=== PATIENT | male | born 1960 | race Caucasian/White ===

== ENCOUNTER 2016-10-12 02:32 | Observation (INO) ==
[2016-10-12 03:13] LABS: MANUAL DIFF NEEDED? NO
[2016-10-12 03:16] LABS: BASO% 0.3 % (0.0-0.8); EOS# 0.16 X1000 (0.0-0.7); EOS% 1.4 % (0.0-10.0); HEMOGLOBIN 10.3 g/dL (14.0-18.0); IMM GRAN# 0.06 X1000 (0.0-0.04); IMM GRAN% 0.5 % (0.0-0.5); LYMPH# 1.08 X1000 (1.2-3.4); LYMPH% 9.4 % (20.5-51.1); MCH 31.8 PG (27-31); MCHC 32.2 g/dL (33-37); MCV 98.8 FL (81-99); MONO# 1.33 X1000 (0.11-0.59); MONO% 11.6 % (1.7-9.3); MPV 11.1 FL (7.4-10.4); NEUT% 76.8 % (42.2-75.2); PLT 170 X1000 (130-400); RBC 3.24 XMIL (4.7-6.1)
[2016-10-12 03:27] LABS: INR 0.97; PROTIME 10.2 Seconds (9.2-11.7); PTT 26.6 Seconds (22.0-36.0)
[2016-10-12] MEDS ORDERED: SOLU-CORTEF IV ONE (03:28)
[2016-10-12] MEDS ORDERED: NS 1,000 ML IV SCH (03:28)
[2016-10-12 03:38] LABS: ALBUMIN 3.9 g/dL (3.5-5.0); CALCIUM 8.4 mg/dL (8.8-10.2); POTASSIUM 4.7 mmol/L (3.5-5.1); TOTAL BILIRUBIN 0.34 mg/dL (0.20-1.00); TOTAL PROTEIN 6.1 g/dL (6.3-8.3)
[2016-10-12] MEDS: PROTONIX 80 MG in NS 80 ML IV SCH ×3 (03:38→23:00)
--- NOTE | 2016-10-12 04:27 | PROVIDER DOCUMENTATION ---
This chart was entered by Sary Hills Scribe, acting as scribe for Peng Goins MD. HPI-Abdominal Pain/GI Problem - General Chief Complaint: GI Bleed Stated Complaint: VOMITING BLOOD Time Seen by Provider: 10/12/16 02:39 Source: patient Allergies/Adverse Reactions: Patient Allergies Allergy/AdvReac Type Severity Reaction Status Date / Time Penicillins Allergy Intermediate Unknown Verified 04/27/14 10:07 Home Medications: Home Medication List Medication Instructions Recorded Confirmed Last Taken Type Allopurinol [Zyloprim] 600 mg PO DAILY 04/27/14 10/12/16 08/04/14 07:30 History Atenolol 12.5 mg PO BID 04/27/14 10/12/16 08/04/14 07:30 History Atorvastatin Calcium [Lipitor] 20 mg PO DAILY 04/27/14 10/12/16 08/03/14 21:00 History Cyclosporine, Modified [Neoral] 75 mg PO BID 04/27/14 10/12/16 08/04/14 07:30 History Iron Fum,Ps/FA/Vit B with C #9 1 each PO DAILY 04/27/14 10/12/16 08/04/14 07:30 History [Integra Plus Capsule] Losartan [Cozaar] 25 mg PO DAILY 04/27/14 10/12/16 08/03/14 07:30 History Multivitamin with Minerals 1 each PO DAILY 04/27/14 10/12/16 08/04/14 07:30 History [Multiple Vitamin] Mycophenolate Mofetil [Cellcept] 1,000 mg PO BID 04/27/14 10/12/16 08/04/14 07: 30 History [place]-3 Fatty Acids/Fish Oil [Fish 1 each PO DAILY 04/27/14 10/12/16 08/04/14 07 :30 History Oil 1,000 mg Softgel] Prednisone 10 mg PO DAILY 04/27/14 10/12/16 08/04/14 07:30 History Sulfamethoxazole/Trimethoprim 1 each PO DAILY 04/27/14 10/12/16 08/04/14 07:30 History [Bactrim 400-80 mg Tablet] Ubidecarenone/Vit E Acetate [Co 1 each PO DAILY 04/27/14 10/12/16 08/04/14 07: 30 History Q-10 100 mg Softgel] - History of Present Illness-ABD Nature of Presenting Problems: 56 year old M presents to the ED with a cc of ABD pain, nausea, and vomiting. Pt states that he had ABD discomfort yesterday. This morning around 0100 pt began vomiting. Pt states that the first vomit was normal but the rest have been pure blood. Pt states that it has been bright red blood. Abdominal Pain Onset Location: reports: epigastric Pain Radiation: reports: no radiation Quality of Pain: reports: aching Severity in ED: reports: mild Onset/Duration: reports: 24 hours ago Timing: reports: still present Activities at Onset: reports: none Associated Symptoms: reports: nausea, vomiting Emesis Description: reports: red blood Bruising or Bleeding Gums?: No Similar Symptoms Previously?: No Recently seen or treated by another doctor?: No Review of Systems - Adult - REVIEW OF SYSTEMS - ADULT Constitutional: denies: chills, fever Eyes: reports: no symptoms reported Ears, Nose, Mouth & Throat: reports: no symptoms reported Cardiovascular: denies: chest pain, palpitations Respiratory: denies: cough, shortness of breath Gastrointestinal: reports: abdominal pain, hematemesis, nausea, vomiting. denies: diarrhea Genitourinary: reports: no symptoms reported Musculoskeletal: reports: no symptoms reported Integumentary: reports: no symptoms reported Neurological: reports: no symptoms reported Psychiatric: reports: no symptoms reported Endocrine: reports: no symptoms reported Hematologic/Lymphatic: reports: no symptoms reported Allergic/Immunologic: reports: no symptoms reported All Other Systems: Reviewed and Negative Past History - Adult - PAST MEDICAL HISTORY-ADULT Review of Records: reports: Nursing Assessment Review, Medications Reviewed Major Childhood Illnesses: reports: denies history Cardiovascular: reports: HTN, hyperlipidemia Genitourinary: reports: kidney disease, other (kidney transplant) Other Conditions: reports: blindness (right eye) - PRIOR SURGERIES/PROCEDURES Surgical/Procedure History: reports: appendectomy, joint replacement, other ( renal transplant) - IMMUNIZATION STATUS Childhood Immunizations: See Nurse Assessment Flu Vaccine: See Nurse Assessment - SOCIAL HISTORY Smoking: non-smoker Substance Use: none/never Alcohol Use Frequency: never Physical Exam-General - PHYSICAL EXAM-ADULT Initial Vital Signs Reviewed: Yes - CONSTITUTIONAL General Appearance: appears well, alert, no apparent distress - EYES Eyes: other (right pupil 7mm and nonreactive secondary to blindness, left pupil 3mm and reactive) - RESPIRATORY Respiratory: chest non-tender, lungs clear, normal breath sounds - CARDIOVASCULAR Cardiovascular: normal peripheral pulses, regular rate, rhythm, no edema - GASTROINTESTINAL (ABDOMEN) Abdominal Exam: soft, tenderness (epigastric), other (kidney transplant RLQ) - SKIN Integumentary: normal color, normal turgor, warm/dry - PSYCHIATRIC Psych/Mental Status: normal mood/affect, normal thought content, normal thought process, oriented x 3 Progress - PLAN OF CARE/RESULTS Progress/Plan/Lab Results: Vital Signs - 8 hr 10/12/16 02:36 Temperature 97.8 F Pulse Rate 81 Respiratory Rate 18 Blood Pressure 191/108 O2 Sat by Pulse Oximetry 99 Orders Category Date Time Status Saline Loc DIRECTED Care 10/12/16 02:38 Active CBC WITH ELECTRONIC DIFF [HEME] Stat Lab 10/12/16 02:38 Ordered COMPREHENSIVE METABOLIC PANEL [CHEM] Stat Lab 10/12/16 02:38 Ordered OCCULT BLOOD NON-FECES Stat Lab 10/12/16 02:38 Uncollected PROTIME WITH INR [COAG] Stat Lab 10/12/16 02:38 Ordered PTT [COAG] Stat Lab 10/12/16 02:38 Ordered TYPE & SCREEN [BBK] Stat Lab 10/12/16 02:38 Ordered Result Diagrams: 10/12/16 02:50 10/12/16 02:50 - REASSESSMENT Reassessment #1 Time Reassessed: 04:00 (He remains stable with HCT) Departure - Departure Time of Disposition Decision: 04:25 DIAGNOSIS: GI bleed Qualifiers: GI bleed type/associated pathology: gastrointestinal hemorrhage with hematemesis Qualified Code(s): K92.0 - Hematemesis Disposition: ADMITTED INPATIENT 09 Certified Medical Emergency: Emergent Condition: Fair Referrals and Follow-Ups: Noman Marinelli MD [Primary Care Provider] - This chart was documented by the indicated scribe, (Sary Hills Scribe) and accurately reflects the services I performed and decisions made by me, Peng Goins MD, as attested by the provider's signature.
[2016-10-12] MEDS ORDERED: ZOFRAN IV ONE (05:06)
--- NOTE | 2016-10-12 06:06 | HISTORY AND PHYSICAL ---
PRIMARY CARE PROVIDER: Dr. Marinelli. SEALER DRY CELL: Dr. Mathew. CHIEF COMPLAINT: Abdominal pain with blood in vomit. HISTORY OF PRESENT ILLNESS: Mr. Edwards is a 56-year-old male with a history of hypertension, hyperlipidemia, chronic kidney disease status post renal transplant who comes in today after having abdominal pain. He vomited one time which was around 1 this morning. The first time the patient had emesis it was normal. After that, it was bright red blood. Laboratory data was checked in the emergency room. Hemoglobin and hematocrit were 10.3 and 32 respectively. The patient will be admitted for further evaluation and treatment. PAST MEDICAL HISTORY: 1. Hypertension. 2. Hyperlipidemia. 3. Chronic kidney disease status post renal transplant. 4. Right eye blindness. PREVIOUS SURGICAL HISTORY: 1. Appendectomy. 2. Right renal transplant. 3. Bilateral hip replacement. 4. Bilateral triceps repair. SOCIAL HISTORY: Lives at home with his . 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 Denies alcohol, tobacco, or illicit drug use or abuse. FAMILY HISTORY: All of his mother's siblings had unspecified cancers; otherwise, patient denied a chronic illness in his family. ALLERGIES: Penicillin. HOME MEDICATIONS: 1. Fish oil 1000 mg daily. 2. Multivitamin 1 p.o. daily. 3. Bactrim DS 400/80 1 p.o. daily. 4. Prednisone 10 mg p.o. daily. 5. Integra Plus capsule 1 p.o. daily. 6. Lipitor 20 mg p.o. daily. 7. CellCept 1000 mg p.o. b.i.d. 8. Cozaar 25 mg p.o. daily. 9. Neoral 75 mg p.o. b.i.d. 10. Atenolol 12.5 mg p.o. b.i.d. 11. Zyloprim 600 mg p.o. daily. 12. CoQ10 100 mg soft gel 1 p.o. daily. REVIEW OF SYSTEMS: A 14 point review of systems conducted with the patient. Pertinent positives listed above in the HPI. All other systems negative. PHYSICAL EXAMINATION: VITAL SIGNS: Temperature 97.8 degrees, pulse 70, respirations 17, blood pressure 128/73, oxygen saturation 99% on room air. GENERAL: A pleasant 56-year-old male lying in the ER stretcher. No acute distress. Answers all questions appropriately. HEENT: Head is atraumatic, normocephalic. Right pupil was roughly 6 mm and nonreactive related to right eye blindness. Left pupil is 3 mm. It is briskly responsive and round. Extraocular eye movement intact. Sclerae is anicteric. Conjunctivae is pink. Oral mucosa is dry. NECK: Supple. No JVD. No thyromegaly. Trachea is midline. No cervical lymphadenopathy. CARDIAC: Regular rhythm. S1-S2 appreciated. No murmurs, gallops, rubs. LUNGS: Clear to auscultation bilaterally. No rhonchi, wheezes or rales. Symmetrical rise and fall of respirations. ABDOMEN: Protuberant and soft, nondistended. Tender in the epigastric area. No rebound tenderness. Bowel sounds present in all 4 quadrants. Hyperactive. No pulsatile mass. No organomegaly. EXTREMITIES: 2+ pitting edema bilateral lower extremities. 2+ pedal pulses. No clubbing, no cyanosis. SKIN: Warm, dry, intact. No acute lesions or rash. GENITOURINARY: The patient voids, otherwise deferred. NEUROLOGICAL: Alert and oriented x3. Otherwise nonfocal examination. LABORATORY DATA: WBC 11.48, hemoglobin 10.3, hematocrit 32, platelet count 170,000. Coags within normal limits. Sodium 144, potassium 4.7, chloride 109, carbon dioxide 23, BUN 52, creatinine 2.4, glucose 130. ASSESSMENT AND PLAN: 1. Upper gastrointestinal bleed. Consult Gastroenterology. Protonix drip which is already been started. Normal saline at 100 mL an hour. NPO, hold p.o. medications. 2. Chronic kidney disease stage 3, status post renal transplant. As noted above, p.o. medications will be held related to gastrointestinal bleed. Consult Dr. Mathew for help with these medications. 3. Anemia. Likely somewhat related to her chronic kidney disease. Also possibly related to acute GI bleed. We will trend hemoglobin and hematocrit. 4. Hypertension. Patient is normotensive at this time. We will hold all p.o. medications. Restart when appropriate. Further recommendations per patient clinical course. Dictated by KAYKAY Dean for Gilbert Foley MD cc: MD Noman Glass MD Harley C. Bailey, SENIOR ACCOUNT DIRECTOR Gilbert Og, MD
[2016-10-12] MEDS ORDERED: PROTONIX IV ONE (06:31)
[2016-10-12] MEDS ORDERED: SODIUM CHLORIDE 0.9% INJ ONE (06:31)
[2016-10-12] MEDS ORDERED: NS 1,000 ML IV ONE (06:49)
[2016-10-12 08:10] LABS: MANUAL DIFF NEEDED? NO
[2016-10-12] MEDS: ZOFRAN IV PRN ×2 (09:36→15:57)
[2016-10-12 10:15] LABS: BASO% 0.2 % (0.0-0.8); EOS# 0.06 X1000 (0.0-0.7); EOS% 0.5 % (0.0-10.0); HEMATOCRIT 27.9 % (42.0-52.0); HEMOGLOBIN 8.8 g/dL (14.0-18.0); IMM GRAN# 0.07 X1000 (0.0-0.04); IMM GRAN% 0.5 % (0.0-0.5); LYMPH# 0.68 X1000 (1.2-3.4); LYMPH% 5.1 % (20.5-51.1); MCH 31.3 PG (27-31); MCHC 31.5 g/dL (33-37); MCV 99.3 FL (81-99); MONO# 1.67 X1000 (0.11-0.59); MONO% 12.6 % (1.7-9.3); NEUT% 81.1 % (42.2-75.2); PLT 144 X1000 (130-400); RBC 2.81 XMIL (4.7-6.1)
[2016-10-12 12:59] LABS: MANUAL DIFF NEEDED? NO
[2016-10-12 13:07] LABS: BASO% 0.1 % (0.0-0.8); EOS# 0.05 X1000 (0.0-0.7); EOS% 0.4 % (0.0-10.0); HEMATOCRIT 28.8 % (42.0-52.0); IMM GRAN# 0.05 X1000 (0.0-0.04); IMM GRAN% 0.4 % (0.0-0.5); LYMPH# 0.76 X1000 (1.2-3.4); LYMPH% 5.9 % (20.5-51.1); MCH 30.9 PG (27-31); MCHC 31.3 g/dL (33-37); MONO# 1.11 X1000 (0.11-0.59); MONO% 8.6 % (1.7-9.3); MPV 10.6 FL (7.4-10.4); NEUT% 84.6 % (42.2-75.2); PLT 151 X1000 (130-400); RBC 2.91 XMIL (4.7-6.1)
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
[2016-10-12] MEDS ORDERED: EPINEPHRINE SYRINGE ONE (15:17)
[2016-10-12] MEDS ORDERED: DIPRIVAN 1% ONE (15:34)
--- NOTE | 2016-10-12 15:42 | CONSULTATION ---
DATE OF CONSULTATION: 10/12/2016 REASON FOR CONSULTATION: Chronic kidney disease and kidney transplantation. HISTORY OF PRESENT ILLNESS: Mr. Edwards is a 56-year-old white male who is well known to me. Baseline creatinine is approximately 2.5. He states he was in his usual health until yesterday when he woke up feeling somewhat nauseated. Through the day this persisted and he ate pizza late in the day. This was followed by emesis which transitioned into hematemesis. He never had melena or diarrhea or joceline hematochezia. Because of these symptoms, he sought attention in the emergency room where he was evaluated and admitted for upper GI bleeding. He has been treated with IV pantoprazole and IV fluids. His morning medicines were held. PAST MEDICAL HISTORY: As above. He also has history of hyperlipidemia and hypertension. HOME MEDICATIONS: Include multivitamin, trimethoprim sulfa, prednisone, Integra, Lipitor, CellCept, Cozaar, Neoral, atenolol, Zyloprim, Co-Q10. ALLERGIES: Penicillin. SOCIAL HISTORY: He is and lives with his . He works as a dairy farmer. No alcohol or tobacco. FAMILY HISTORY: Positive for end-stage kidney disease. REVIEW OF SYSTEMS: Otherwise noncontributory. PHYSICAL EXAMINATION: Vital Signs: Blood pressure 136/78, heart rate 65, respiration 18, afebrile. General: He is an obese, white male, lying in bed. No distress. Skin: Warm and dry. HEENT: Conjunctivae are pink. Pupils are equal but the right pupil is irregular. This is chronic. Oropharynx is clear. Tongue is moist. Dentition is acceptable. Neck: Neck veins are not distended. Heart: Regular without gallops. Lungs: Have equal breath sounds. No crackles or wheezes. Abdomen: Obese and soft. Transplant is present in the right lower quadrant. Bowel sounds are present. No organomegaly or masses or bruits. Extremities: Have no edema, clubbing, or cyanosis. LABORATORY DATA: Sodium 144, potassium 4.7, chloride 109, bicarbonate 23, BUN 52, creatinine 2.4. Hemoglobin 9.0. IMPRESSION: 1. Upper gastrointestinal bleeding. Appreciate the input of the consultants. 2. History of renal transplantation. His kidney function is at his historical baseline. 3. Electrolytes/acid base/hypertension all within target. cc: Canelo Mathew MD
--- NOTE | 2016-10-12 16:11 | OPERATIVE NOTE ---
PROCEDURE DATE: 10/12/2016 PROCEDURE: EGD and hemorrhage control. PREOPERATIVE DIAGNOSIS: Upper GI bleed and anemia. POSTOPERATIVE DIAGNOSIS: Esophagitis and ulcer at the cardia with visible vessel treated. HISTORY: This is a 56-year-old gentleman admitted to the hospital with episodes of hematemesis and was found to be anemic. Endoscopy was done for diagnostic as well as therapeutic purposes. SCOPE USED: Olympus GIF XQ190. MEDICATION USED: MAC as per Anesthesia. DESCRIPTION OF PROCEDURE: Informed consent was obtained from the patient. The procedure, risks, benefits, alternatives were explained in layman's terms. He understood. All his pertinent questions were answered. The patient was brought to the endoscopy unit and was premedicated as per Anesthesia. After adequate sedation, while he was lying in left lateral position, the gastroscope was introduced into the posterior pharynx and advanced under direct vision into the esophagus. Esophagus in the upper middle part was normal. Distal esophagus right at the GE junction showed evidence of esophagitis LA grade B. No ulcer was seen in the esophagus. No varices seen. No evidence of active bleeding noted in the esophagus. The scope was then passed through the esophagus into the stomach. Stomach was examined both in straight and retroflexed view, which revealed a linear ulcer at the cardia which was about 10-15 mm in length and about 5-8 mm in diameter. The lower part of the ulcer showed evidence of a visible vessel. It was not actively bleeding. The stomach otherwise did not show any evidence of ulcer, AVM or mass. The scope was then passed through the pylorus into the duodenal bulb, and then 2nd part duodenum. Both appeared normal. The scope was then withdrawn back into the stomach where I used a sclerotherapy needle and injected 1:10,000 epinephrine in aliquots of 0.5 mL at the base of the ulcer. Then I used an Endoclip and applied the clip at the visible vessel adequately. The scope was then withdrawn. Patient tolerated the procedure well. No complications noted. Patient was then transferred to the recovery area in a stable condition. IMPRESSION: 1. Ulcer at the cardia with visible vessel treated. 2. Esophagitis distal esophagus. RECOMMENDATION: I would continue him on proton pump inhibitor IV and switch it to p.o. in the morning and we will observe him in the hospital for tonight. If he is stable and does not show any evidence of bleeding or drop in his hemoglobin, hematocrit, he can be discharged to be followed up at Dr. Marinelli's office and my office. I have explained the findings and plan to the patient and his who was present at bedside. They understood. All the pertinent questions answered. cc: MD Noman Corado MD
[2016-10-12 19:32] LABS: MANUAL DIFF NEEDED? NO
[2016-10-12 19:37] LABS: BASO% 0.1 % (0.0-0.8); EOS# 0.07 X1000 (0.0-0.7); EOS% 0.5 % (0.0-10.0); HEMATOCRIT 30.2 % (42.0-52.0); HEMOGLOBIN 9.6 g/dL (14.0-18.0); IMM GRAN# 0.06 X1000 (0.0-0.04); IMM GRAN% 0.4 % (0.0-0.5); LYMPH# 1.03 X1000 (1.2-3.4); LYMPH% 7.5 % (20.5-51.1); MCH 31.6 PG (27-31); MCHC 31.8 g/dL (33-37); MCV 99.3 FL (81-99); MONO# 1.58 X1000 (0.11-0.59); MONO% 11.4 % (1.7-9.3); MPV 10.7 FL (7.4-10.4); NEUT% 80.1 % (42.2-75.2); PLT 150 X1000 (130-400); RBC 3.04 XMIL (4.7-6.1)
[2016-10-12] MEDS: TENORMIN PO SCH (20:51)
[2016-10-13 01:14] LABS: MANUAL DIFF NEEDED? NO
[2016-10-13 06:51] LABS: BASO% 0.3 % (0.0-0.8); EOS# 0.21 X1000 (0.0-0.7); EOS% 2.1 % (0.0-10.0); HEMATOCRIT 27.6 % (42.0-52.0); HEMOGLOBIN 8.5 g/dL (14.0-18.0); IMM GRAN# 0.05 X1000 (0.0-0.04); IMM GRAN% 0.5 % (0.0-0.5); LYMPH# 1.61 X1000 (1.2-3.4); LYMPH% 15.8 % (20.5-51.1); MCH 30.8 PG (27-31); MCHC 30.8 g/dL (33-37); MONO% 10.8 % (1.7-9.3); MPV 11.1 FL (7.4-10.4); NEUT% 70.5 % (42.2-75.2); PLT 148 X1000 (130-400); RBC 2.76 XMIL (4.7-6.1)
[2016-10-13 07:29] LABS: CALCIUM 8.5 mg/dL (8.8-10.2); POTASSIUM 4.8 mmol/L (3.5-5.1)
[2016-10-13] MEDS: TENORMIN PO SCH (08:05)
[2016-10-13 09:00] VITALS: BP 133/69
[2016-10-13] MEDS ORDERED: PREDNISONE PO SCH (09:00)
[2016-10-13] MEDS ORDERED: ZYLOPRIM PO SCH (09:00)
[2016-10-13] MEDS ORDERED: SEPTRA DS PO SCH (09:00)
[2016-10-13] MEDS ORDERED: CELLCEPT PO SCH (09:00)
[2016-10-13] MEDS ORDERED: NEORAL PO SCH (09:00)
[2016-10-13] MEDS ORDERED: COZAAR PO SCH (09:00)
--- NOTE | 2016-10-13 19:29 | DISCHARGE SUMMARY ---
ADMISSION DATE: 10/12/2016 DISCHARGE DATE: 10/13/2016 ADMISSION DIAGNOSES: 1. Upper gastrointestinal bleed. 2. Chronic kidney disease stage 3 status post renal transplant. 3. Acute blood loss anemia. 4. Hypertension. DISCHARGE DIAGNOSES: 1. Ulcer at the cardia with visible vessel treated. 2. Esophagitis of the distal esophagus. 3. Upper gastrointestinal bleed. 4. Acute blood loss anemia. 5. Chronic kidney disease and kidney transplant. CONSULTATIONS: 1. Gastroenterology Dr. Womack. 2. Dr. Mathew. PROCEDURES: On 10/12/2016 had a EGD with hemorrhage control, had a ulcer at the cardia with visible vessel treated and esophagitis of the distal esophagus. HOSPITAL COURSE: Mr. Eldon Edwards Junior is a 56-year-old male with a history of hypertension, hyperlipidemia, CKD status post renal transplant who presented with abdominal pain. He had vomiting once prior to arrival and admitted that the emesis was normal in color. After that it turned bright red. He had a hemoglobin, hematocrit of 10.[address] Womack was consulted. He was held NPO, a Protonix drip had been started and he was started on IV fluid hydration. Dr. Mathew was also consulted in view of the CKD status post renal transplant for close monitoring. There were no issues during the stay. Same day of admission Dr. Womack took him for EGD on 10/12/2016 for hemorrhage control. It was during that time he found a ulcer at the cardia and the visible vessel was treated also found to have esophagitis of the distal esophagus. Recommendations were to continue him on a proton pump inhibitor, observe her overnight and if hemoglobin, hematocrit remain stable he was okay for discharge. His hemoglobin and hematocrit remained stable between low 27.6 to as high as 32 without transfusion. His vital signs remained stable throughout and he was discharged home DISCHARGE LAB DATA: White blood cells 10,000, hemoglobin 8.5, hematocrit 27.6, platelet count 148,000. Sodium 143, potassium 4.8, BUN 57, creatinine 2.5 glucose 84, calcium 8.5. IMAGING DURING STAY: None. DISCHARGE DIET: Renal diet. DISCHARGE VITAL SIGNS: Temperature 98.7 degrees, heart rate 72, respiratory rate 18, blood pressure 133/69, O2 saturation 98% on room air. DISCHARGE MEDICATIONS: Allopurinol 600 mg p.o. daily, atenolol 12.5 mg p.o. twice daily, Lipitor 20 mg p.o. daily, cyclosporine 75 mg p.o. twice daily, iron supplement 1 tab p.o. daily, losartan 25 mg p.o. daily, multivitamin 1 tab p.o. daily, CellCept mycophenolate 1000 mg p.o. twice daily, fish oil 1 tab p.o. daily, Protonix 40 mg p.o. daily, prednisone 10 mg p.o. daily, Carafate 1 g 4 times a day, CoQ10 one tab p.o. daily. DISPOSITION: Home. DISCHARGE INSTRUCTIONS: Follow up with Dr. Marinelli and Dr. Womack as outpatient and to return to the ER if symptoms return. He will have self-care. Dictated by KAYKAY Santillan for Gabe Cesar MD cc: MD Gabe Au MD Dr. Yousuf
[2016-10-15] MEDS ORDERED: PROTONIX IV SCH (06:00)
[2016-10-15] MEDS ORDERED: ANESTHESIA PB SET 88 IN 5742 ONE (10:58)
[2016-10-15] MEDS ORDERED: LR 1,000 ML ONE (10:58)
== END 2016-10-13 12:13 | disposition home or self-care (01) ==
LOC: ED 02:32 → 3N 02:34 → INTOOBSV 02:34 → SUATTDRO 02:34
PROVIDERS: ATTEND Internal Medicine